=== PATIENT | female | born 1990 | race Caucasian/White ===

== ENCOUNTER → 2018-03-14 | Outpatient (CLI) | payer OTHER ==
[2018-03-14 10:53] LABS: ADD MAN DIFF? NO
[2018-03-14 11:09] LABS: BASO % 0 % (0-3); EOS # 0.2 x10^3/uL (0.0-0.7); EOS % 2 % (0-3); HEMATOCRIT 38.9 % (36.0-47.0); HEMOGLOBIN 13.6 g/dL (12.0-15.5); LYMPH # 2.5 x10^3/uL (1.0-4.8); LYMPH % 26 % (24-48); MEAN CORPUSCULAR HEMOGLOBIN 33 pg (25-35); MEAN CORPUSCULAR HGB CONC 35 g/dL (31-37); MEAN CORPUSCULAR VOLUME 94 fL (79-100); MONO # 0.9 x10^3/uL (0.0-1.1); MONO % 10 % (0-9); NEUT # 6.2 x10^3uL (1.8-7.7); NEUT % 63 % (31-73); PLATELET COUNT 164 x10^3/uL (140-400); RED BLOOD COUNT 4.12 x10^6/uL (3.50-5.40); RED CELL DISTRIBUTION WIDTH 13.2 % (11.5-14.5); WHITE BLOOD COUNT 9.8 x10^3/uL (4.0-11.0)
== END | disposition home or self-care (01) ==
LOC: LAB 10:32
DX: O09.92 Supervision of high risk pregnancy, unspecified, second trimester (principal); Z3A.00 Weeks of gestation of pregnancy not specified
CPT/HCPCS: 36415; 82950; 85025

== ENCOUNTER 2018-05-08 14:28 | Observation (INO) | payer OTHER ==
[2018-05-08] MEDS ORDERED: IV RINGERS,LACTATED 1000ML 1,000 ML IV (14:53)
[2018-05-08 15:07] LABS: BILIRUBIN,URINE SMALL (NEG); CLARITY,URINE CLOUDY; COLOR,URINE AMBER; GLUCOSE,URINE NEGATIVE (NEG); NITRITE,URINE NEGATIVE (NEG); PROTEIN,URINE 30 mg/dL (NEG-TRACE)
[2018-05-08 15:08] LABS: AMNIO PT NEGATIVE; NEG OBC AMNIO NEG; POS OBC AMNIO POS
[2018-05-08 15:12] LABS: BARBITURATES NEG (NEG); BENZODIAZEPINES NEG (NEG); CANNABINOIDS NEG (NEG); COCAINE NEG (NEG); METHADONE NEG (NEG); OPIATES NEG (NEG); PHENCYCLIDINE NEG (NEG)
[2018-05-08 15:16] LABS: BACTERIA,URINE MANY /HPF (0-FEW); SQUAMOUS EPITHELIAL CELL,UR MOD /LPF; WBC,URINE >40 /HPF (0-4)
[2018-05-08 15:19] LABS: AMPHETAMINE/METHAMPHETAMINE NEG (NEG); ETHANOL, URINE NEG (NEG)
== END 2018-05-08 16:15 | disposition short-term general hospital (02) ==
LOC: 3 SO LND 14:28
DX: O42.913 Preterm premature rupture of membranes, unspecified as to length of time between rupture and onset of labor, third trimester (principal); Z79.899 Other long term (current) drug therapy; Z3A.36 36 weeks gestation of pregnancy
CPT/HCPCS: 36415; 80307; 81001; 84112; 87086; G0378; G0379

== ENCOUNTER 2018-05-29 07:41 | Inpatient (IN) | payer OTHER ==
[~2018-05-29] VITALS: Ht 175.3 cm; Wt 108.9 kg
--- NOTE | 2018-05-29 08:00 | PDOC1 ---
OB - History Hx of Present Care: Good Care Ultrasounds: Normal mid trimester US Obstetrical Complications: None Medical Complications: None Past Family/Social History * Past Medical, Surgical, Family and Obstetric Histories reviewed from chart. Rubella: Immune RPR/VDRL: Negative GBS Status: Negative HBsAG: Negative OB - Chief Complaint & HPI Date of Admission: Date of Admission: May 29, 2018 at 07:41 Chief Complaint/History : 3 Para: 0 EGA: 39 Reason for admission: section Indication for : other (broken pelvis) Admission Nurse Assessment Rev: Yes OB - Admission Exam Physical Exam HEENT: Normal Heart: Regular Rate Lungs: Clear Abdomen: Gravid, Non tender, Soft Extremities: Edema Reflexes: Normal Cervical Dilatation: None Effacement: 0% Station: Ballotable Membranes: Intact Heart Rate: Normal Accelerations: Accelerations Present Decelerations: No decelerations Contractions on Admission: None Text A: 39 wks IUP Primary c/s secondary broken pelvis P: Admit for c/s . SRINIVAS MACIAS Jr, MD May 29, 2018 08:00
[2018-05-29 08:37] VITALS: BP 119/70
[2018-05-29] MEDS ORDERED: IV RINGERS,LACTATED 1000ML 1,000 ML IV SCH (08:45)
[2018-05-29] MEDS ORDERED: CITRIC ACID/SODIUM CITRATE 30 ML SOLUTION. PO ONE (08:45)
[2018-05-29 08:58] LABS: BASO % 0 % (0-3); EOS # 0.2 x10^3/uL (0.0-0.7); EOS % 2 % (0-3); HEMATOCRIT 37.2 % (36.0-47.0); HEMOGLOBIN 12.8 g/dL (12.0-15.5); LYMPH # 2.2 x10^3/uL (1.0-4.8); LYMPH % 22 % (24-48); MEAN CORPUSCULAR HEMOGLOBIN 33 pg (25-35); MEAN CORPUSCULAR HGB CONC 34 g/dL (31-37); MEAN CORPUSCULAR VOLUME 95 fL (79-100); MONO # 0.9 x10^3/uL (0.0-1.1); MONO % 9 % (0-9); NEUT # 6.6 x10^3uL (1.8-7.7); NEUT % 67 % (31-73); PLATELET COUNT 126 x10^3/uL (140-400); RED BLOOD COUNT 3.92 x10^6/uL (3.50-5.40); RED CELL DISTRIBUTION WIDTH 12.7 % (11.5-14.5); WHITE BLOOD COUNT 9.8 x10^3/uL (4.0-11.0)
[2018-05-29] MEDS ORDERED: BUPIVACAINE MPF 0.75% DEXTROSE 2 ML AMPUL. ONE (09:07)
[2018-05-29] MEDS ORDERED: OXYTOCIN 10 UNIT/ML VIAL. ONE (09:19)
[2018-05-29] MEDS ORDERED: ONDANSETRON PF 4 MG/2 ML VIAL. ONE (09:19)
[2018-05-29] MEDS ORDERED: FAMOTIDINE 20 MG/2 ML VIAL ONE (09:19)
[2018-05-29] MEDS ORDERED: fentaNYL PF VIAL 100 MCG/2 ML VIAL ONE (09:19)
[2018-05-29 09:31] LABS: BILIRUBIN,URINE SMALL (NEG); CLARITY,URINE CLEAR; COLOR,URINE AMBER; NITRITE,URINE NEGATIVE (NEG); PROTEIN,URINE NEGATIVE (NEG-TRACE)
[2018-05-29 09:43] LABS: BARBITURATES NEG (NEG); BENZODIAZEPINES NEG (NEG); CANNABINOIDS NEG (NEG); COCAINE NEG (NEG); METHADONE NEG (NEG); OPIATES NEG (NEG); PHENCYCLIDINE NEG (NEG)
[2018-05-29 09:45] LABS: AMPHETAMINE/METHAMPHETAMINE NEG (NEG)
[2018-05-29] MEDS ORDERED: ePHEDrine PF IN SALINE 50 MG/5 ML DISP.SYRIN IV ONE (10:01)
[2018-05-29 10:06] LABS: BACTERIA,URINE MODERATE /HPF (0-FEW); RBC,URINE OCC /HPF (0-2); SQUAMOUS EPITHELIAL CELL,UR MANY /LPF; WBC,URINE >40 /HPF (0-4)
--- NOTE | 2018-05-29 10:47 | PDOC4 ---
OB Operative Note Date: May 29, 2018 PRE OP DIAGNOSIS: Other (39 wks with h/o broken pelvis) POST OP DIAGNOSIS: Other (same) OPERATION PERFORMED: L [facility] Surgeon Dr. Olivo Anesthesia: Regional (Spinal) Blood Loss 600 ml Specimen placenta and OB Findings: Position (Vertex), Sex (Female), (8/9), Weight (7 Lb 5 oz) Complications none Additional Remarks pt. SRINIVAS Gallegos Jr, MD May 29, 2018 10:47
[2018-05-29] MEDS ORDERED: ONDANSETRON PF 4 MG/2 ML VIAL. IV PRN (11:00)
[2018-05-29] MEDS ORDERED: 0.9 % SODIUM CHLORIDE 10 ML DISP.SYRIN. IV PRN (11:00)
[2018-05-29] MEDS ORDERED: OXYTOCIN 30 UNIT/500 ML PREMIX 500 ML IV PRN (11:00)
[2018-05-29] MEDS ORDERED: diphenhydrAMINE ORAL ELIXIR 12.5 MG/5 ML ML PO PRN (11:00)
[2018-05-29] MEDS ORDERED: ZOLPIDEM 5 MG TABLET. PO PRN (11:00)
[2018-05-29] MEDS ORDERED: MAG HYDROX/ALUMINUM HYD/SIMETH 30 ML ORAL.SUSP PO PRN (11:00)
--- NOTE | 2018-05-29 11:13 | OP ---
DATE OF SURGERY: PREOPERATIVE DIAGNOSES: 1. A 39 weeks' intrauterine . 2. History of broken pelvis. POSTOPERATIVE DIAGNOSES: 1. A 39 weeks' intrauterine . 2. History of broken pelvis. PROCEDURE: Primary low transverse section. SURGEON: Srinivas Ayala M.D. ANESTHESIA: Spinal. ESTIMATED BLOOD LOSS: 600 mL. FINDINGS: Three-vessel cord placenta delivered under gentle traction intact. weight 7 pounds 5 ounces. Three-vessel cord placenta, nuchal cord x 1. SUMMARY: A 28-year-old 3, para 0 at 39 weeks with history of broken pelvis presented for primary low transverse section. She was counseled on the risks, benefits and expectations and voiced clear understanding to proceed. DESCRIPTION OF PROCEDURE: The patient was taken to the surgery suite and placed in dorsal supine position. She was prepped with ChloraPrep and draped in sterile fashion. After adequate anesthesia, a Pfannenstiel skin incision was made with the scalpel down to and through the fascia. Fascia was extended laterally using curved Mandel scissors. Superior edge of the fascia grasped with 2 Radha clamps and dissected free of the abdominal rectus muscles using blunt dissection with Bovie cautery. The same process took place inferiorly. The abdominal rectus muscles were then dissected bluntly at the midline. Peritoneum was grasped with 2 hemostats, entered sharply with Metzenbaum scissors. This incision was extended superiorly as well as inferiorly. The Gene ring retractor was placed. Low transverse hysterotomy incision made with the scalpel down to and through the amniotic sac. Hysterotomy incision was extended laterally and superiorly digitally. With the aid of fundal pressure, the 's head was delivered in a smooth atraumatic manner. With additional fundal pressure, the anterior shoulder was delivered followed by posterior shoulder and rest of female was delivered. Nuchal cord x 1 was reduced. was suctioned with a bulb syringe orally and nasally, umbilical was clamped twice and cut and viable female infant was handed to waiting nursing staff. Umbilical cord blood was then obtained. Three-vessel cord placenta was delivered manually intact. Uterus was then exteriorized and cleared of clot and debris with a moist lap. The hysterotomy incision was reapproximated using 1-0 Vicryl suture in running locked fashion. Uterus palpated firm. Fallopian tubes and ovaries appeared normal bilaterally. Posterior cul-de-sac was cleared of clot and debris with moist lap. Uterus was then returned to the abdomen. Pericolic gutters were cleared of clot and debris with a moist lap. Hysterotomy incision was reviewed and was hemostatic. Interceed was placed over the hysterotomy incision in an inverted T fashion. The Gene ring retractor was removed. Peritoneum was reapproximated using 1-0 Vicryl suture in a running fashion. Fascia was reapproximated using 0 Vicryl suture in running fashion. The skin was reapproximated using 4-0 Vicryl suture in subcuticular manner. The patient tolerated the procedure well and was sent to the recovery room in stable condition. Sponge and needle count correct x 3. SRINIVAS AYALA MD DR: ANITRA/nelson JOB#: [id number] / [id number]
[2018-05-29] MEDS: KETOROLAC 30 MG/ML VIAL. IV PRN ×2 (14:04→19:58)
[2018-05-29 15:12] VITALS: BP 88/50
[2018-05-29 15:32] VITALS: BP 99/44
[2018-05-29 16:00] VITALS: BP 100/50
[2018-05-29] MEDS ORDERED: FERROUS SULFATE 325 MG TABLET. PO SCH (17:00)
[2018-05-29 17:08] VITALS: BP 96/48
[2018-05-29] MEDS: IV RINGERS,LACTATED 1000ML 1,000 ML IV PRN (20:30)
[2018-05-29] MEDS ORDERED: IV RINGERS,LACTATED 1000ML 1,000 ML IV PRN (20:30)
[2018-05-30] MEDS: KETOROLAC 30 MG/ML VIAL. IV PRN ×2 (04:01→08:32)
[2018-05-30] MEDS: IV RINGERS,LACTATED 1000ML 1,000 ML IV PRN (04:11)
[2018-05-30 04:26] LABS: BASO % 0 % (0-3); EOS # 0.1 x10^3/uL (0.0-0.7); EOS % 1 % (0-3); HEMOGLOBIN 11.8 g/dL (12.0-15.5); LYMPH # 1.9 x10^3/uL (1.0-4.8); LYMPH % 24 % (24-48); MEAN CORPUSCULAR HEMOGLOBIN 33 pg (25-35); MEAN CORPUSCULAR HGB CONC 35 g/dL (31-37); MEAN CORPUSCULAR VOLUME 95 fL (79-100); MONO # 1.1 x10^3/uL (0.0-1.1); MONO % 14 % (0-9); NEUT # 4.9 x10^3uL (1.8-7.7); NEUT % 61 % (31-73); PLATELET COUNT 123 x10^3/uL (140-400); RED BLOOD COUNT 3.58 x10^6/uL (3.50-5.40); RED CELL DISTRIBUTION WIDTH 12.9 % (11.5-14.5); WHITE BLOOD COUNT 7.9 x10^3/uL (4.0-11.0)
[2018-05-30 05:44] VITALS: BP 107/75
[2018-05-30 07:00] VITALS: BP 99/63
--- NOTE | 2018-05-30 08:13 | PDOC ---
OB Progress Note Date of Service 05/30/18 Time of Evaluation 0810 Notes Pt. feeling well. Pain controlled. Lab Laboratory Tests Test 05/29/18 08:35 05/29/18 08:40 05/29/18 09:00 05/30/18 03:20 Nasal Screen MRSA (PCR) Negative (Negative) White Blood Count 9.8 x10^3/uL (4.0-11.0) 7.9 x10^3/uL (4.0-11.0) Red Blood Count 3.92 x10^6/uL (3.50-5.40) 3.58 x10^6/uL (3.50-5.40) Hemoglobin 12.8 g/dL (12.0-15.5) 11.8 g/dL (12.0-15.5) Hematocrit 37.2 % (36.0-47.0) 34.0 % (36.0-47.0) Mean Corpuscular Volume 95 fL (79-100) 95 fL (79-100) Mean Corpuscular Hemoglobin 33 pg (25-35) 33 pg (25-35) Mean Corpuscular Hemoglobin Concent 34 g/dL (31-37) 35 g/dL (31-37) Red Cell Distribution Width 12.7 % (11.5-14.5) 12.9 % (11.5-14.5) Platelet Count 126 x10^3/uL (140-400) 123 x10^3/uL (140-400) Neutrophils (%) (Auto) 67 % (31-73) 61 % (31-73) Lymphocytes (%) (Auto) 22 % (24-48) 24 % (24-48) Monocytes (%) (Auto) 9 % (0-9) 14 % (0-9) Eosinophils (%) (Auto) 2 % (0-3) 1 % (0-3) Basophils (%) (Auto) 0 % (0-3) 0 % (0-3) Neutrophils # (Auto) 6.6 x10^3uL (1.8-7.7) 4.9 x10^3uL (1.8-7.7) Lymphocytes # (Auto) 2.2 x10^3/uL (1.0-4.8) 1.9 x10^3/uL (1.0-4.8) Monocytes # (Auto) 0.9 x10^3/uL (0.0-1.1) 1.1 x10^3/uL (0.0-1.1) Eosinophils # (Auto) 0.2 x10^3/uL (0.0-0.7) 0.1 x10^3/uL (0.0-0.7) Basophils # (Auto) 0.0 x10^3/uL (0.0-0.2) 0.0 x10^3/uL (0.0-0.2) Treponema pallidum Antibody Nonreactive (Nonreactive) Urine Collection Type Unknown Urine Color Constance Urine Clarity Clear Urine pH 6.0 Urine Specific [place] >=1.030 Urine Protein Negative mg/dL (NEG-TRACE) Urine Glucose (UA) Negative mg/dL (NEG) Urine Ketones (Stick) 15 mg/dL (NEG) Urine Blood Small (NEG) Urine Nitrite Negative (NEG) Urine Bilirubin Small (NEG) Urine Urobilinogen Dipstick 1.0 mg/dL (0.2 mg/dL) Urine Leukocyte Esterase Large (NEG) Urine RBC Occ /HPF (0-2) Urine WBC >40 /HPF (0-4) Urine Squamous Epithelial Cells Many /LPF Urine Bacteria Moderate /HPF (0-FEW) Urine Mucus Marked /LPF Urine Opiates Screen Neg (NEG) Urine Methadone Screen Neg (NEG) Urine Barbiturates Neg (NEG) Urine Phencyclidine Screen Neg (NEG) Urine Amphetamine/Methamphetamine Neg (NEG) Urine Benzodiazepines Screen Neg (NEG) Urine Cocaine Screen Neg (NEG) Urine Cannabinoids Screen Neg (NEG) Urine Ethyl Alcohol Neg (NEG) Laboratory Tests Test 05/29/18 08:35 05/29/18 08:40 05/29/18 09:00 05/30/18 03:20 Nasal Screen MRSA (PCR) Negative (Negative) White Blood Count 9.8 x10^3/uL (4.0-11.0) 7.9 x10^3/uL (4.0-11.0) Red Blood Count 3.92 x10^6/uL (3.50-5.40) 3.58 x10^6/uL (3.50-5.40) Hemoglobin 12.8 g/dL (12.0-15.5) 11.8 g/dL (12.0-15.5) Hematocrit 37.2 % (36.0-47.0) 34.0 % (36.0-47.0) Mean Corpuscular Volume 95 fL (79-100) 95 fL (79-100) Mean Corpuscular Hemoglobin 33 pg (25-35) 33 pg (25-35) Mean Corpuscular Hemoglobin Concent 34 g/dL (31-37) 35 g/dL (31-37) Red Cell Distribution Width 12.7 % (11.5-14.5) 12.9 % (11.5-14.5) Platelet Count 126 x10^3/uL (140-400) 123 x10^3/uL (140-400) Neutrophils (%) (Auto) 67 % (31-73) 61 % (31-73) Lymphocytes (%) (Auto) 22 % (24-48) 24 % (24-48) Monocytes (%) (Auto) 9 % (0-9) 14 % (0-9) Eosinophils (%) (Auto) 2 % (0-3) 1 % (0-3) Basophils (%) (Auto) 0 % (0-3) 0 % (0-3) Neutrophils # (Auto) 6.6 x10^3uL (1.8-7.7) 4.9 x10^3uL (1.8-7.7) Lymphocytes # (Auto) 2.2 x10^3/uL (1.0-4.8) 1.9 x10^3/uL (1.0-4.8) Monocytes # (Auto) 0.9 x10^3/uL (0.0-1.1) 1.1 x10^3/uL (0.0-1.1) Eosinophils # (Auto) 0.2 x10^3/uL (0.0-0.7) 0.1 x10^3/uL (0.0-0.7) Basophils # (Auto) 0.0 x10^3/uL (0.0-0.2) 0.0 x10^3/uL (0.0-0.2) Treponema pallidum Antibody Nonreactive (Nonreactive) Urine Collection Type Unknown Urine Color Constance Urine Clarity Clear Urine pH 6.0 Urine Specific [place] >=1.030 Urine Protein Negative mg/dL (NEG-TRACE) Urine Glucose (UA) Negative mg/dL (NEG) Urine Ketones (Stick) 15 mg/dL (NEG) Urine Blood Small (NEG) Urine Nitrite Negative (NEG) Urine Bilirubin Small (NEG) Urine Urobilinogen Dipstick 1.0 mg/dL (0.2 mg/dL) Urine Leukocyte Esterase Large (NEG) Urine RBC Occ /HPF (0-2) Urine WBC >40 /HPF (0-4) Urine Squamous Epithelial Cells Many /LPF Urine Bacteria Moderate /HPF (0-FEW) Urine Mucus Marked /LPF Urine Opiates Screen Neg (NEG) Urine Methadone Screen Neg (NEG) Urine Barbiturates Neg (NEG) Urine Phencyclidine Screen Neg (NEG) Urine Amphetamine/Methamphetamine Neg (NEG) Urine Benzodiazepines Screen Neg (NEG) Urine Cocaine Screen Neg (NEG) Urine Cannabinoids Screen Neg (NEG) Urine Ethyl Alcohol Neg (NEG) Medications Current Medications Ringer's Solution 1,000 ml @ 1,000 mls/hr Q1H IV Last administered on at 08:33; Start 05/29/18 at 08:45; Stop 05/29/18 at 09:44; Status DC Cefazolin Sodium/ Dextrose 50 ml @ 100 mls/hr 1X ONCE IV Last administered on 05/29/18at 09:13; Start 05/29/18 at 08:45; Stop 05/29/18 at 09:14; Status DC Citric Acid/ Sodium Citrate (Bicitra) 30 ml 1X ONCE PO Last administered on at 09:12; Start 05/29/18 at 08:45; Stop 05/29/18 at 08:46; Status DC Bupivacaine HCl/ Dextrose (Marcaine Spinal 0.75%) 2 ml STK-MED ONCE .ROUTE ; Start 05/29/18 at 09:07; Stop 05/29/18 at 09:08; Status DC Famotidine (Pepcid Vial) 20 mg STK-MED ONCE .ROUTE ; Start 05/29/18 at 09:19; Stop 05/29/18 at 09:20; Status DC Ondansetron HCl (Zofran) 4 mg STK-MED ONCE .ROUTE ; Start 05/29/18 at 09:19; Stop 05/29/18 at 09:20; Status DC Oxytocin (Pitocin) 10 unit STK-MED ONCE .ROUTE ; Start 05/29/18 at 09:19; Stop 05/29/18 at 09:20; Status DC Fentanyl Citrate (Fentanyl 2ml Vial) 100 mcg STK-MED ONCE .ROUTE ; Start at 09:19; Stop 05/29/18 at 09:20; Status DC Ephedrine Sulfate (ePHEDrine PF IN SALINE SYRINGE) 50 mg STK-MED ONCE IV ; Start 05/29/18 at 10:01; Stop 05/29/18 at 10:02; Status DC Sodium Chloride (Normal Saline Flush) 3 ml QSHIFT PRN IV AFTER MEDS AND BLOOD DRAWS; Start 05/29/18 at 11:00 Oxytocin/Sodium Chloride 500 ml @ 125 mls/hr CONT PRN IV EXCESSIVE POST- BLEEDING; Start 05/29/18 at 11:00; Stop 05/29/18 at 18:59; Status DC Ibuprofen (Motrin) 800 mg PRN Q8HRS PRN PO INFLAMMATION; Start 05/29/18 at 11: 00 Ondansetron HCl (Zofran) 4 mg PRN Q6HRS PRN IV NAUSEA/VOMITING; Start 05/29/18 at 11:00 Docusate Sodium (Colace) 100 mg PRN BID PRN PO CONSTIPATION; Start 05/29/18 at 11:00 Al Hydroxide/Mg Hydroxide (Mylanta Plus Xs) 30 ml PRN Q4HRS PRN PO HEARTBURN / GAS; Start 05/29/18 at 11:00 Simethicone (Gas-X) 80 mg PRN AFTMEALHC PRN PO GAS / BLOATING; Start 05/29/18 at 11:00 Diphenhydramine HCl (Benadryl Oral Elixir) 12.5 mg PRN Q6HRS PRN PO ITCHING; Start 05/29/18 at 11:00 Ferrous Sulfate (Feosol) 325 mg BIDWMEALS PO ; Start 05/29/18 at 17:00; Stop at 05:44; Status DC Zolpidem Tartrate (Ambien) 5 mg PRN QHS PRN PO INSOMNIA, MAY REPEAT X1; Start 05/29/18 at 11:00 Ketorolac Tromethamine (Toradol 30mg Vial) 30 mg PRN Q6HRS PRN IV MILD PAIN Last administered on 05/30/18at 04:01; Start 05/29/18 at 11:00; Stop 06/03/18 at 10:59 Fentanyl Citrate 30 ml @ 0 mls/hr CONT PRN PRN IV PER PROTOCOL Last administered on 05/30/18at 03:06; Start 05/29/18 at 11:00 Ringer's Solution 1,000 ml @ 125 mls/hr CONT PRN IV SEE I/O RECORD Last administered on 05/30/18at 04:11; Start 05/29/18 at 20:30 Ringer's Solution 1,000 ml @ 125 mls/hr CONT PRN IV SEE I/O RECORD; Start at 20:30 Non-Formulary Medication 1 ea BID PO ; Start 05/30/18 at 09:00 Exam Abd: soft, mild tenderness, fundus firm Bandage removed. Incision site: clean, dry and intact Assessment POD#1 s/p c/s Plan of Care: Continue current Tx, Mgmt SRINIVAS MACIAS Jr, MD May 30, 2018 08:13
[2018-05-30] MEDS: IBUPROFEN 800 MG TABLET. PO PRN ×2 (08:31→15:25)
[2018-05-30] MEDS: BUPRENORPHINE 8 MG PO SCH ×2 (08:31→21:17)
[2018-05-30] MEDS: SIMETHICONE 80 MG TAB.CHEW PO PRN ×2 (08:31→13:32)
[2018-05-30] MEDS ORDERED: BUPRENORPHINE HCL 8 MG TAB.SUBL SL ONE ×2 (09:00)
[2018-05-30 11:05] VITALS: BP 94/53
[2018-05-30] MEDS: GABAPENTIN 300 MG CAPSULE. PO SCH ×2 (13:32→20:15)
[2018-05-30] MEDS: DOCUSATE SODIUM 100 MG CAPSULE. PO PRN (20:15)
[2018-05-30 22:08] VITALS: BP 100/56
[2018-05-31] MEDS: IBUPROFEN 800 MG TABLET. PO PRN ×3 (04:06→19:46)
[2018-05-31 05:48] VITALS: BP 110/62
--- NOTE | 2018-05-31 08:10 | PDOC ---
OB Progress Note Date of Service 05/31/18 Time of Evaluation 0800 Notes Pt. feeling well. Pain better controlled. Lab Laboratory Tests Test 05/29/18 08:35 05/29/18 08:40 05/29/18 09:00 05/30/18 03:20 Nasal Screen MRSA (PCR) Negative (Negative) White Blood Count 9.8 x10^3/uL (4.0-11.0) 7.9 x10^3/uL (4.0-11.0) Red Blood Count 3.92 x10^6/uL (3.50-5.40) 3.58 x10^6/uL (3.50-5.40) Hemoglobin 12.8 g/dL (12.0-15.5) 11.8 g/dL (12.0-15.5) Hematocrit 37.2 % (36.0-47.0) 34.0 % (36.0-47.0) Mean Corpuscular Volume 95 fL (79-100) 95 fL (79-100) Mean Corpuscular Hemoglobin 33 pg (25-35) 33 pg (25-35) Mean Corpuscular Hemoglobin Concent 34 g/dL (31-37) 35 g/dL (31-37) Red Cell Distribution Width 12.7 % (11.5-14.5) 12.9 % (11.5-14.5) Platelet Count 126 x10^3/uL (140-400) 123 x10^3/uL (140-400) Neutrophils (%) (Auto) 67 % (31-73) 61 % (31-73) Lymphocytes (%) (Auto) 22 % (24-48) 24 % (24-48) Monocytes (%) (Auto) 9 % (0-9) 14 % (0-9) Eosinophils (%) (Auto) 2 % (0-3) 1 % (0-3) Basophils (%) (Auto) 0 % (0-3) 0 % (0-3) Neutrophils # (Auto) 6.6 x10^3uL (1.8-7.7) 4.9 x10^3uL (1.8-7.7) Lymphocytes # (Auto) 2.2 x10^3/uL (1.0-4.8) 1.9 x10^3/uL (1.0-4.8) Monocytes # (Auto) 0.9 x10^3/uL (0.0-1.1) 1.1 x10^3/uL (0.0-1.1) Eosinophils # (Auto) 0.2 x10^3/uL (0.0-0.7) 0.1 x10^3/uL (0.0-0.7) Basophils # (Auto) 0.0 x10^3/uL (0.0-0.2) 0.0 x10^3/uL (0.0-0.2) Treponema pallidum Antibody Nonreactive (Nonreactive) Urine Collection Type Unknown Urine Color Constance Urine Clarity Clear Urine pH 6.0 Urine Specific [place] >=1.030 Urine Protein Negative mg/dL (NEG-TRACE) Urine Glucose (UA) Negative mg/dL (NEG) Urine Ketones (Stick) 15 mg/dL (NEG) Urine Blood Small (NEG) Urine Nitrite Negative (NEG) Urine Bilirubin Small (NEG) Urine Urobilinogen Dipstick 1.0 mg/dL (0.2 mg/dL) Urine Leukocyte Esterase Large (NEG) Urine RBC Occ /HPF (0-2) Urine WBC >40 /HPF (0-4) Urine Squamous Epithelial Cells Many /LPF Urine Bacteria Moderate /HPF (0-FEW) Urine Mucus Marked /LPF Urine Opiates Screen Neg (NEG) Urine Methadone Screen Neg (NEG) Urine Barbiturates Neg (NEG) Urine Phencyclidine Screen Neg (NEG) Urine Amphetamine/Methamphetamine Neg (NEG) Urine Benzodiazepines Screen Neg (NEG) Urine Cocaine Screen Neg (NEG) Urine Cannabinoids Screen Neg (NEG) Urine Ethyl Alcohol Neg (NEG) Medications Current Medications Ringer's Solution 1,000 ml @ 1,000 mls/hr Q1H IV Last administered on at 08:33; Start 05/29/18 at 08:45; Stop 05/29/18 at 09:44; Status DC Cefazolin Sodium/ Dextrose 50 ml @ 100 mls/hr 1X ONCE IV Last administered on 05/29/18at 09:13; Start 05/29/18 at 08:45; Stop 05/29/18 at 09:14; Status DC Citric Acid/ Sodium Citrate (Bicitra) 30 ml 1X ONCE PO Last administered on at 09:12; Start 05/29/18 at 08:45; Stop 05/29/18 at 08:46; Status DC Bupivacaine HCl/ Dextrose (Marcaine Spinal 0.75%) 2 ml STK-MED ONCE .ROUTE ; Start 05/29/18 at 09:07; Stop 05/29/18 at 09:08; Status DC Famotidine (Pepcid Vial) 20 mg STK-MED ONCE .ROUTE ; Start 05/29/18 at 09:19; Stop 05/29/18 at 09:20; Status DC Ondansetron HCl (Zofran) 4 mg STK-MED ONCE .ROUTE ; Start 05/29/18 at 09:19; Stop 05/29/18 at 09:20; Status DC Oxytocin (Pitocin) 10 unit STK-MED ONCE .ROUTE ; Start 05/29/18 at 09:19; Stop 05/29/18 at 09:20; Status DC Fentanyl Citrate (Fentanyl 2ml Vial) 100 mcg STK-MED ONCE .ROUTE ; Start at 09:19; Stop 05/29/18 at 09:20; Status DC Ephedrine Sulfate (ePHEDrine PF IN SALINE SYRINGE) 50 mg STK-MED ONCE IV ; Start 05/29/18 at 10:01; Stop 05/29/18 at 10:02; Status DC Sodium Chloride (Normal Saline Flush) 3 ml QSHIFT PRN IV AFTER MEDS AND BLOOD DRAWS; Start 05/29/18 at 11:00 Oxytocin/Sodium Chloride 500 ml @ 125 mls/hr CONT PRN IV EXCESSIVE POST- BLEEDING; Start 05/29/18 at 11:00; Stop 05/29/18 at 18:59; Status DC Ibuprofen (Motrin) 800 mg PRN Q8HRS PRN PO INFLAMMATION Last administered on at 04:06; Start 05/29/18 at 11:00; Stop 05/31/18 at 07:42; Status DC Ondansetron HCl (Zofran) 4 mg PRN Q6HRS PRN IV NAUSEA/VOMITING; Start 05/29/18 at 11:00 Docusate Sodium (Colace) 100 mg PRN BID PRN PO CONSTIPATION Last administered on 05/30/18at 20:15; Start 05/29/18 at 11:00 Al Hydroxide/Mg Hydroxide (Mylanta Plus Xs) 30 ml PRN Q4HRS PRN PO HEARTBURN / GAS; Start 05/29/18 at 11:00 Simethicone (Gas-X) 80 mg PRN AFTMEALHC PRN PO GAS / BLOATING Last administered on 05/30/18at 13:32; Start 05/29/18 at 11:00 Diphenhydramine HCl (Benadryl Oral Elixir) 12.5 mg PRN Q6HRS PRN PO ITCHING; Start 05/29/18 at 11:00 Ferrous Sulfate (Feosol) 325 mg BIDWMEALS PO ; Start 05/29/18 at 17:00; Stop at 05:44; Status DC Zolpidem Tartrate (Ambien) 5 mg PRN QHS PRN PO INSOMNIA, MAY REPEAT X1; Start 05/29/18 at 11:00 Ketorolac Tromethamine (Toradol 30mg Vial) 30 mg PRN Q6HRS PRN IV MILD PAIN Last administered on 05/30/18at 08:32; Start 05/29/18 at 11:00; Stop 05/30/18 at 13:20; Status DC Fentanyl Citrate 30 ml @ 0 mls/hr CONT PRN PRN IV PER PROTOCOL Last administered on 05/30/18at 03:06; Start 05/29/18 at 11:00; Stop 05/30/18 at 08:49 ; Status DC Ringer's Solution 1,000 ml @ 125 mls/hr CONT PRN IV SEE I/O RECORD Last administered on 05/30/18at 04:11; Start 05/29/18 at 20:30 Ringer's Solution 1,000 ml @ 125 mls/hr CONT PRN IV SEE I/O RECORD; Start at 20:30 Non-Formulary Medication 1 ea BID PO Last administered on 05/30/18at 21:17; Start 05/30/18 at 09:00 Gabapentin (Neurontin) 600 mg TID PO Last administered on 05/30/18at 20:15; Start 05/30/18 at 14:00 Ibuprofen (Motrin) 800 mg PRN Q6HRS PRN PO INFLAMMATION; Start 05/31/18 at 07: 45 Bisacodyl (Dulcolax Supp) 10 mg PRN DAILY PRN [place] CONSTIPATION; Start 05/31/18 at 07:45 Exam Abd: soft, non tender, fundus firm Incision site: clean, dry and intact Assessment POD#2 s/p c/s Plan of Care: Continue current Tx, Mgmt SRINIVAS MACIAS Jr, MD May 31, 2018 08:10
[2018-05-31] MEDS: BUPRENORPHINE 8 MG PO SCH ×2 (09:00→21:02)
[2018-05-31] MEDS ORDERED: BUPRENORPHINE HCL 8 MG TAB.SUBL SL ONE ×2 (09:00)
[2018-05-31] MEDS: GABAPENTIN 300 MG CAPSULE. PO SCH ×2 (09:05→21:02)
[2018-05-31] MEDS: DOCUSATE SODIUM 100 MG CAPSULE. PO PRN ×2 (09:06→21:02)
[2018-05-31] MEDS: BISACODYL 10 MG SUPP.RECT. PR PRN (09:06)
[2018-05-31 10:20] VITALS: BP 102/69
[2018-05-31 16:11] VITALS: BP 101/64
[2018-05-31 23:28] VITALS: BP 92/57
[2018-06-01] MEDS: IBUPROFEN 800 MG TABLET. PO PRN (04:02)
[2018-06-01 05:57] VITALS: BP 105/66
[2018-06-01] MEDS ORDERED: BUPRENORPHINE HCL 8 MG TAB.SUBL SL ONE (09:00)
[2018-06-01] MEDS: SIMETHICONE 80 MG TAB.CHEW PO PRN (09:47)
[2018-06-01] MEDS: GABAPENTIN 300 MG CAPSULE. PO SCH (09:47)
[2018-06-01] MEDS: BUPRENORPHINE 8 MG PO SCH (09:47)
[2018-06-01] MEDS: BISACODYL 10 MG SUPP.RECT. PR PRN (09:48)
[2018-06-01] MEDS: DOCUSATE SODIUM 100 MG CAPSULE. PO PRN (09:51)
[2018-06-01] MEDS ORDERED: ACETAMINOPHEN 325 MG TABLET. PO ONE (10:00)
[2018-06-01 11:25] VITALS: BP 106/67
--- NOTE | 2018-06-01 12:22 | PDOC3 ---
OB DISCHARGE SUMMARY DATE OF ADMISSION: 05/29/18 DATE OF DISCHARGE: 06/01/18 REASON FOR ADMISSION: section INTRAPARTUM PROCEDURES: : Low Cerv Trans DISCHARGE DIAGNOSIS: Term Delivered DISCHARGE INFORMATION: Activity (ad carin), Diet (regular), Instructions (pelvic rest x 6 wks, no driving x 2 wks, no lifting > 20 lbs x 6 wks) HOSPITAL COURSE term gestation delivered via c/s uncomplicated. SRINIVAS MACIAS Jr, MD Jun 01, 2018 12:22
--- NOTE | 2018-06-01 12:23 | DISCH ---
DISCHARGE INSTRUCTIONS Condition on Discharge Condition on Discharge: Stable Activity After Discharge Activity Instructions for Disc: Activity as tolerated Lifting Instructions after Dis: No heavy lifting Driving Instructions after Dis: No driving for 2 weeks Diet after Discharge Diet after Discharge: Regular Contacting the DRShan after DC Call your doctor for: Concerns you may have Follow-Up Follow up with: Dr. Olivo in 2 weeks. SRINIVAS OLIVO Jr, MD Jun 01, 2018 12:23
[2018-06-01] MEDS ORDERED: DOCU-109 PO (12:25)
[2018-06-01] MEDS ORDERED: IBUP800T19 PO (12:25)
[2018-06-01] MEDS ORDERED: GABA300C8 PO (12:25)
== END 2018-06-01 17:30 | DRG 766 ==
LOC: EEVIPCON 07:41 → 3 SO LND 07:41 → 3 NORTH 15:10
PROVIDERS: ADMIT Obstetrics & Gynecology; ATTEND Obstetrics & Gynecology
PROC: 10D00Z1 Extraction of Products of Conception, Low, Open Approach (ICD-10-PCS; principal; 2018-05-29)
DX: O69.81X0 Labor and delivery complicated by cord around neck, without compression, not applicable or unspecified (principal); Z3A.39 39 weeks gestation of pregnancy; Z37.0 Single live birth; Z87.891 Personal history of nicotine dependence
CPT/HCPCS: 36415; 80307; 81001; 85025; 86592; 86850; 86900; 86901; 87086; 87641; C1781; J0690; J1885; J2405; J2590; J3010; J7120; S0028; G0479